=== PATIENT | female | born 1955 | race Caucasian/White ===

== ENCOUNTER 2023-12-13 11:49 | Emergency (ER) | payer MEDICARE, OTHER, SELFPAY ==
[2023-12-13 11:56] VITALS: BP 186/99; PULSE 114; RESP 16; TEMP 37; O2SAT 97; BMI 30.9
--- NOTE | 2023-12-13 12:15 | ED.GENADULT ---
HPI - General Adult General Chief complaint: Nasal Problem Stated complaint: bloody nose for 1 hour Time Seen by Provider: 12/13/23 11:51 Source: patient Mode of arrival: Ambulatory Limitations: no limitations History of Present Illness HPI narrative: Patient is a 68-year-old female. Last evening had a nosebleed. This morning had another nosebleed that lasted approximately 1 hour. No trauma. Not on blood thinners. She thought that it was actually coming from both sides of her nose. No sinus congestion. Related Data Home Medications Medication Instructions Recorded Confirmed ASPIRIN (Aspirin) 81 mg PO Q DAY ##0 09/03/11 ASCORBIC ACID (VITAMIN C 1,000 mg PO ##0 12/11/12 (CHEWABLE)) atorvastatin 20 mg tablet (Lipitor) 20 mg PO HS ##0 03/19/17 glimepiride 2 mg tablet 2 mg PO ##0 03/19/17 [DDR prime] ##0 05/03/17 [coq10] 100 mg PO QDAY ##0 05/03/17 [deep blue polythe] ##0 05/03/17 [do terra bone nutri] ##0 05/03/17 [do terra essential ] ##0 05/03/17 [onguard] ##0 05/03/17 [phyto estrogen] ##0 05/03/17 [terra zyme] ##0 05/03/17 [vitality robel] ##0 05/03/17 cyanocobalamin (vitamin B-12) 50 0 PO QDAY ##0 05/03/17 mcg lozenges (Vitamin B-12) vitamin B complex (B 1 tab PO QDAY ##0 05/03/17 Complex-Vitamin B12 tablet) Allergies Allergy/AdvReac Type Severity Reaction Status Date / Time No Known Drug Allergies Allergy Verified 08/14/18 14:05 Review of Systems Constitutional Constitutional: Reports system reviewed and no additional complaints, except as documented ENT Ears, Nose, Mouth, and Throat: Reports system reviewed and no additional complaints, except as documented Integumentary/Breasts Skin/Breast: Reports system reviewed and no additional complaints, except as documented Hematologic/Lymphatic On Anticoagulants: No Patient History Medical History Diabetes mellitus Hypertension Social History Smoking Status: Never smoker Smoking Status: Never smoker Exam Initial Vital Signs Initial Vital Signs: Vital Signs Temperature 98.6 F 12/13/23 11:56 Pulse Rate 114 H 12/13/23 11:56 Respiratory Rate 16 12/13/23 11:56 Blood Pressure 186/99 H 12/13/23 11:56 Pulse Oximetry 97 12/13/23 11:56 Oxygen Delivery Method Room Air 12/13/23 11:56 HENID Nose: septum normal (Friable area left anterior nasal septum), No epistaxis and No nasal discharge Mouth: oral mucosae normal and moist mucous membranes Throat: posterior oropharynx abnormal Course Orders Ordered: Discontinued Medications Oxymetazoline HCl (Oxymetazoline Nasal [place] 30 Ml) 2 sprays NASAL NOW ONE Stop: 12/13/23 11:56 Vital Signs Vital signs: Vital Signs - 8 hr 12/13/23 11:56 Temperature 98.6 F Pulse Rate 114 H Respiratory Rate 16 Blood Pressure 186/99 H Pulse Oximetry 97 Oxygen Delivery Method Room Air Medical Decision Making MDM Narrative Medical decision making narrative: Patient has no bleeding now. No intervention needed now in the emergency department. No respiratory distress. We did discuss things that she can try at home to include moisturizers to moisturize the air. They were given a nasal clamp. We talked about using Afrin. They were given return precautions. They expressed understanding and agreement. Discharge Plan Departure Patient Disposition: Home Clinical Impression: Epistaxis Instructions: DI for Nosebleed Activity Restrictions/Additional Instructions: You can try moisturizing cream or Vaseline on the outside of the nose to help moisturize the air. If your bleeding starts again recommend that you gently blow your nose. Use Afrin and then the nasal clamp. Repeat this process as needed. If it continues return to the emergency department for further evaluation. Prescriptions: No Action ASPIRIN (Aspirin) 81 mg PO Q DAY Qty: 0 ASCORBIC ACID (VITAMIN C (CHEWABLE)) 1,000 mg PO Qty: 0 atorvastatin [Lipitor] 20 MG tablet 20 mg PO HS Qty: 0 glimepiride 2 MG tablet 2 mg PO Qty: 0 [do terra essential ] Qty: 0 vitamin B complex [B Complex-Vitamin B12] 1 EACH tablet 1 tab PO QDAY Qty: 0 cyanocobalamin (vitamin B-12) [Vitamin B-12] 50 MCG lozenge 0 PO QDAY Qty: 0 [coq10] 100 mg PO QDAY Qty: 0 [DDR prime] Qty: 0 [onguard] Qty: 0 [phyto estrogen] Qty: 0 [terra zyme] Qty: 0 [deep blue polythe] Qty: 0 [do terra bone nutri] Qty: 0 [vitality robel] Qty: 0 Referrals: Miscellaneous,Doctor, MD [Primary Care Provider] - Stand Alone Forms: Patient Portal/API
[2023-12-13 12:27] VITALS: PULSE 104
== END 2023-12-13 12:29 | disposition home or self-care (01) ==
PROVIDERS: Emergency Provider Emergency Medicine; Family Provider Family Medicine; PCP Internal Medicine
DX: R04.0 Epistaxis (principal)
CPT/HCPCS: 99281; 99282